=== PATIENT | female | born 2005 | race Caucasian/White ===

== ENCOUNTER 2023-07-26 18:56 | Emergency (ER) | payer OTHER, SELFPAY ==
--- NOTE | 2023-07-26 21:12 | XR_ITS ---
PROCEDURE INFORMATION: Exam: XR Right Hand Exam date and time: 07/26/2023 9:08 PM Age: 17 years old Clinical indication: Pain; Hand; Right; Additional info: Twisting injury, pain TECHNIQUE: Imaging protocol: Radiologic exam of the right hand. Views: 3 or more views. COMPARISON: No relevant prior studies available. FINDINGS: Bones/joints: Normal. Soft tissues: Normal. IMPRESSION: No acute findings.
--- NOTE | 2023-07-26 21:12 | XR_ITS ---
PROCEDURE INFORMATION: Exam: XR Right Wrist Exam date and time: 07/26/2023 9:10 PM Age: 17 years old Clinical indication: Pain; Wrist; Right; Additional info: Twisting injury, pain TECHNIQUE: Imaging protocol: Radiologic exam of the right wrist. Views: 3 or more views. COMPARISON: CR Hand R 07/26/2023 9:08 PM FINDINGS: Bones/joints: Normal. Soft tissues: Normal. IMPRESSION: No acute findings.
[2023-07-26 21:31] VITALS: BP 115/73; PULSE 68; RESP 18; TEMP 36.6; O2SAT 100
--- NOTE | 2023-07-26 21:37 | ED_ITS ---
Discharge Plan Disposition Patient Disposition: Home, Self-Care Condition: Good Referrals Follow up/Referrals: Stanley Zhang DO [Staff Physician] - See instructions Provider,Inge, [Primary Care Provider] - See instructions Activity Restrictions/Add. Instructions Additional Instructions/Restrictions: You were evaluated in the emergency department today. At this time, your x-ray does not show any acute broken bone. I feel that you likely sprained your wrist. 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 Take Tylenol and ibuprofen at home every 4-6 hours as needed for pain. Keep your arm elevated and use ice to reduce swelling. Return to the emergency department for new or worsening symptoms. Follow-up with your primary care provider over the next week for reassessment. Also recommend close follow-up with orthopedics. Clinical Impressions Clinical Impression: Right wrist sprain Instructions Patient Instructions: DI for Wrist Strain Discharge ED Provider: Christine Coleman General Adult HPI General Chief complaint: Extremity Injury, Upper Stated complaint: AO02/@1600 RT wrist inj Time Seen by Provider: 07/26/23 21:08 Mode of Arrival: Ambulatory Source of Information: Patient Limitations: No Limitations Description of Symptoms (Recalled from ER Triage Doc. by RN): Pt presents with right wrist pain after getting it lodged in the sterring wheel of a [employer] tracker while reaching down to get feed. Rates pain 8/10, no deformity or swelling at this time. History of Present Illness HPI narrative: This patient is a 17-year-old female who denies significant past medical history presenting to the emergency department with concern for right wrist injury. Patient states that she was getting off of farm equipment when her right wrist got caught in the steering well and she fell. She had a tugging/twisting injury to her right wrist and is currently having 8 of 10 pain. No other injuries noted. She denies any numbness, tingling, or other concerns. She was well prior to this. Related Data Allergies Allergy/AdvReac Type Severity Reaction Status Date / Time No Known Allergies Allergy Verified 07/26/23 21:38 [facility] Disclaimer: The information contained in this section may have been updated after the patient was seen, as this information can be updated by other users. Social History Smoking Status: Never smoker alcohol intake: never current occupational status: employed Travel in the last 8 weeks: None ROS Obtained: Yes All systems reviewed & no additional complaints except as documented Physical Exam General General appearance: alert and in no apparent distress Head Head exam: atraumatic and normocephalic Eye Eye exam: Present normal appearance, PERRL and EOMI ENT ENT exam: Present normal exam, normal oropharynx, mucous membranes moist and normal external ear exam Neck Neck exam: Present normal inspection, full ROM and trachea midline; Absent tenderness Chest Chest inspection: Present normal inspection and symmetric chest wall rise; Absent tenderness Respiratory Respiratory exam: Present normal lung sounds bilaterally; Absent respiratory distress, wheezes, stridor or accessory muscle use Cardiovascular Cardiovascular exam: Present regular rate and normal rhythm Abdominal Exam Abdominal exam: Present soft; Absent distention, tenderness or guarding Extremities Exam Extremities exam: Present full ROM, tenderness and normal capillary refill; Absent edema Expanded Upper Extremity Exam Right: Hand L/R front image: 1. other (Tenderness without deformity. All compartments soft. Neurovascularly intact distally.) Back Exam Back exam: Present normal inspection and full ROM; Absent tenderness Neurological Exam Neurological exam: Present alert, oriented X3, CN II-XII intact and normal gait; Absent motor sensory deficit Psychiatric Psychiatric exam: Present normal affect and normal mood Skin Skin exam: Present warm and dry Medical Decision Making Medical Records Medical records reviewed: Yes I reviewed the patient's medical records. [place] Inquiry Pt receiving controlled substance: No Vital Signs: 07/26/23 21:31 07/26/23 22:24 Temperature 98 F 98.2 F Temperature Source Oral Temporal Artery Scan Pulse Rate 63 Pulse Rate [Left] 68 Respiratory Rate 18 16 Blood Pressure 111/70 Blood Pressure [Right Arm] 115/73 Blood Pressure Mean [Right Arm] 87 Blood Pressure Source Automatic Cuff Blood Pressure Source [Right Arm] Automatic Cuff Blood Pressure Position Sitting Blood Pressure Position [Right Arm] Sitting 02 Sat by Pulse Oximetry 100 Oxygen Delivery Method Room Air Room Air Lab Data Lab results reviewed: Yes I reviewed the patient's lab results. Orders (Tests/Meds): ED MEDICATIONS Discontinued Medications Generic Name Dose Route Start Last Admin Trade Name Freq PRN Reason Stop Dose Admin Acetaminophen 1,000 mg 07/26/23 21:38 07/26/23 21:42 Acetaminophen 500mg Tab PO 07/26/23 21:39 1,000 mg ONCE ONE Administration Ibuprofen 800 mg 07/26/23 21:38 07/26/23 21:43 Ibuprofen 400 Mg Tablet PO 07/26/23 21:39 800 mg ONCE ONE Administration ORDERS Category Date Time Status XR hand RT min 3V Stat Exams 07/26/23 21:12 Completed XR wrist RT min 3V Stat Exams 07/26/23 21:12 Completed Medical Decision Narrative: In summary, this patient is a 17-year-old female presenting to the Emergency Department for evaluation of traumatic right wrist pain. Differential diagnoses considered include but are not limited to fracture, contusion, strain/pain, neurovascular injury. Ruling out the most morbid conditions drove assessment. On exam, the patient is neurovascularly intact with no obvious significant deformity. Range of motion appears to be intact. She has no scaphoid tenderness. Workup included x-rays of the right hand and wrist. She was given oral Tylenol and ibuprofen for symptomatic improvement. I independently interpreted x-ray prior to the radiologist read and noted no obvious acute fracture, however the patient does have some soft tissue swelling at this point, so advised likely has a sprain/strain. Please see their read for final interpretation. At this time, feel that she is appropriate for discharge with instructions for supportive management. Considered immobilization, however given that she does not have any significant fracture, I do not feel that this is indicated. She was given instructions for close patient follow-up with her primary care provider as well as orthopedics if she continues to have pain. Patient was discharged in stable condition with very strict return precautions. Critical Care Critical Care Time Critical Care Time: No
[2023-07-26] MEDS: ACETAMINOPHEN 500MG TAB 1000 MG PO (21:42)
[2023-07-26] MEDS: IBUPROFEN 400 MG TABLET 800 MG PO (21:43)
[2023-07-26 22:24] VITALS: BP 111/70; PULSE 63; RESP 16; TEMP 36.8; O2SAT 100
== END 2023-07-26 22:26 | disposition home or self-care (01) ==
PROVIDERS: Emergency Provider Emergency Medicine
DX: S63.501A Unspecified sprain of right wrist, initial encounter (principal); X50.0XXA Overexertion from strenuous movement or load, initial encounter
CPT/HCPCS: 73110; 73130; 99283